=== PATIENT | female | born 1985 | race Caucasian/White ===

== ENCOUNTER 2017-05-03 06:38 | Emergency (ER) | payer OTHER ==
[~2017-05-03] VITALS: Ht 154.9 cm; Wt 56.0 kg
[2017-05-03 06:41] VITALS: BP 134/85; PULSE 84; RESP 15; TEMP 98.1; O2SAT 98
--- NOTE | 2017-05-03 07:32 | PD ---
HPI Chief Complaint: Injury Time Seen by Provider: 07:23 Travel History International Travel<30 days: No Contact w/Intl Traveler<30days: No Traveled to known affect area: No History of Present Illness HPI 31-year-old female presents to the emergency room for evaluation of right foot pain and swelling after injury last night. Patient states another person fell into her and she broke that person's fall with her foot. She had minimal pain last night and was able to ambulate but with time her pain worsened and she can no longer ambulate without significant pain. Patient has not taken anything for symptoms. She iced it last night. Reports mild paresthesias in the toes. No chronic medical conditions or daily medications.. PFSH Past Medical History ?: Not LMP: 04/13/17 Past Surgical History Other Surgery: Yes (SKIN) Social History Alcohol Use: Yes (ONCE WEEKLY) Tobacco Use: Yes (1/2 PPW) Substance Use: No Allergies-Medications (Allergen,Severity, Reaction): Coded Allergies: Penicillins (Verified Allergy, Unknown, 05/03/17) Reported Meds & Prescriptions Reported Meds & Active Scripts Active No Active Prescriptions or Reported Medications Review of Systems Except as stated in HPI: all other systems reviewed are Neg Physical Exam Narrative GENERAL: Well-nourished, well-developed female in no acute distress. Afebrile. SKIN: Focused skin assessment warm/dry. Moderate ecchymosis of the right lateral foot. HEAD: Normocephalic. EYES: No scleral icterus. No injection or drainage. NECK: Supple, trachea midline. No JVD or lymphadenopathy. CARDIOVASCULAR: Regular rate and rhythm without murmurs, gallops, or rubs. RESPIRATORY: Breath sounds equal bilaterally. No accessory muscle use. MUSCULOSKELETAL: No cyanosis. Mild edema of the right midfoot. Less than 2 second capillary refill distally. 2+ dorsalis pedis pulse. Limited range of motion of the foot secondary to pain. Negative squeeze test. No significant tenderness to palpation of the metatarsal bones. Data Data Last Documented VS Vital Signs Date Time Temp Pulse Resp B/P (MAP) Pulse Ox O2 Delivery O2 Flow Rate FiO2 05/03/17 06:41 98.1 84 15 134/85 (101) 98 Room Air Orders Orders Foot, Complete ([id number]) (05/03/17 ) [facility] Medical Decision Making Medical Screen Exam Complete: Yes Emergency Medical Condition: Yes Medical Record Reviewed: Yes Differential Diagnosis Contusion, fracture, sprain, strain Narrative Course 31-year-old otherwise healthy female presents to the emergency room for evaluation of right foot pain and swelling after injury last night. Denies any other injuries. She states a friend fell on top of her foot and now it is painful to bear weight. Physical exam reveals moderate ecchymosis, mild edema, and mild tenderness to palpation of the midfoot. 2+ dorsalis pedis pulse and less than 2 second capillary refill distally. Limited range of motion of the foot secondary to pain. X-ray is negative. This is contusion. Patient placed in Nitin wrap. Offered crutches but declined. Told to follow up with a primary care physician or return for worsening symptoms. She understands and agrees to plan. Diagnosis Primary Impression: Contusion of right foot Qualified Codes: S90.31XA - Contusion of right foot, initial encounter Referrals: Primary Care Physician Additional Instructions: Rest and drink plenty of fluids. Take ibuprofen with food as directed, as needed for pain. Apply ice to the affected area for 20 minutes at a time, as needed for pain and swelling. Follow-up with a primary care physician. Return to the emergency room for worsening symptoms. Scripts No Active Prescriptions or Reported Meds Disposition: 01 DISCHARGE HOME Condition: Stable Maya Gomez May 03, 2017 07:32
--- NOTE | 2017-05-03 08:00 | RADRPT ---
EXAM DATE/TIME: 05/03/2017 07:39 [place] COMPARISON: No previous studies available for comparison. INDICATIONS : Right Foot Pain with bruising and swelling MEDICAL HISTORY : None. SURGICAL HISTORY : None. ENCOUNTER: Initial ACUITY: 1 day PAIN SCORE: 9/10 LOCATION: Right anterior Foot FINDINGS: A fracture is not seen. The bones and joints are normally aligned. The soft tissues are normal. There is minimal spurring at the plantar aponeurosis attachment site at the posterior calcaneus. CONCLUSION: No acute disease. Fantasma Barton MD on May 03, 2017 at 7:55 Board Certified Radiologist. This report was verified electronically.
== END 2017-05-03 08:25 | disposition home or self-care (01) ==
LOC: NEPK 06:38
DX: S90.31XA Contusion of right foot, initial encounter (principal); W51.XXXA Accidental striking against or bumped into by another person, initial encounter
CPT/HCPCS: 73630; 99283